=== PATIENT | male | born 1995 | race Caucasian/White ===

== ENCOUNTER 2018-01-11 15:23 | Emergency (ER) | payer SELFPAY ==
[2018-01-11] MEDS ORDERED: Triamcinolone 40 MG/ML VIAL ONE (17:19)
== END 2018-01-11 17:47 | disposition home or self-care (01) ==
LOC: BURERS 15:23
DX: L23.7 Allergic contact dermatitis due to plants, except food (principal); F17.210 Nicotine dependence, cigarettes, uncomplicated
CPT/HCPCS: 96372; J3301